=== PATIENT | female | born 1960 | race Caucasian/White ===

== ENCOUNTER 2016-10-25 16:43 | Emergency (ER) | payer BC ==
[~2016-10-25] VITALS: Ht 167.6 cm; Wt 61.4 kg
[2016-10-25 17:58] LABS: HEMATOCRIT 44.4 % (37.0-47.0); HEMOGLOBIN 14.8 g/dl (12.0-16.0); IMMATURE GRANULOCYTES 0.1 % (0.0-1.0); MEAN CELL VOLUME 91.9 fL CALC (80.0-100.0); MEAN CORPUSCULAR HGB 30.6 pG CALC (26.0-32.0); MEAN CORPUSCULAR HGB CONC 33.3 g/L CALC (32.0-36.0); NEUT# 3.45 thou/uL (2.00-7.15); RED BLOOD COUNT 4.83 mill/uL (4.20-5.60); RED CELL DISTRI WIDTH 13.2 % (11.5-15.5)
[2016-10-25 18:00] LABS: URINE BILIRUBIN - DIPSTICK NEGATIVE (NEGATIVE); URINE BLOOD DIPSTICK TRACE-INTACT (NEGATIVE); URINE CLARITY CLEAR; URINE COLOR YELLOW; URINE GLUCOSE - DIPSTICK NEGATIVE (NEGATIVE); URINE KETONE 15 mg/dL (NEGATIVE); URINE LEUK ESTERASE NEGATIVE (NEGATIVE); URINE NITRITE - DIPSTICK NEGATIVE (Negative); URINE PH 7.5 (4.5-8.0); URINE PROTEIN - DIPSTICK NEGATIVE (NEG-TRACE); URINE UROBILINOGEN - DIPSTICK 0.2 E.U./dL (0.2)
[2016-10-25 18:02] LABS: BARBITURATES NEGATIVE (NEGATIVE); COCAINE NEGATIVE (NEGATIVE); METHADONE NEGATIVE (NEGATIVE); OXCYCODONE NEGATIVE (NEGATIVE); TETRAHYDROCANNABIONOL NEGATIVE (NEGATIVE); TRICYLIC ANTIDEPRESSANTS NEGATIVE (NEGATIVE)
[2016-10-25 18:06] LABS: ALBUMIN 4.9 g/dL (3.2-5.0); ALKALINE PHOSPHATASE 88 u/l (38-126); ANION GAP 17 (6-22 (CALC)); BILIRUBIN, TOTAL 0.8 mg/dL (0.0-1.4); BUN 19 mg/dL (7-17); BUN/CREATININE RATIO 21 (12-20 (CALC)); CALCIUM 9.8 mg/dL (8.4-10.2); CARBON DIOXIDE 28 mmol/l (22-30); CHLORIDE 101 mmol/l (95-108); CREATININE 0.9 mg/dL (0.5-1.0); GFR > 60 ML/MIN (>=60 (CALC)); GFR FOR AFR.AMER. > 60 ML/MIN (>=60 (CALC)); GLUCOSE 112 mg/dL (65-105); POTASSIUM 3.3 mmol/l (3.5-5.1); SGOT/AST 28 u/l (14-36); SGPT/ALT 36 u/l (9-52); SODIUM 143 mmol/l (137-146); TOTAL PROTEIN 8.4 g/dL (6.3-8.2)
[2016-10-25 18:25] VITALS: BP 141/87
== END 2016-10-25 18:48 | disposition home or self-care (01) | DRG 103 ==
LOC: ED 16:43
PROVIDERS: Emergency Medicine
DX: R51 Headache (principal)

== ENCOUNTER 2016-10-29 15:15 | Emergency (ER) | payer BC ==
[~2016-10-29] VITALS: Ht 167.6 cm; Wt 55.0 kg
[2016-10-29] MEDS ORDERED: GARLIC PO (16:00)
[2016-10-29] MEDS ORDERED: VITAMIN D PO (16:01)
[2016-10-29] MEDS ORDERED: MOTRIN800 MG PO (16:03)
[2016-10-29] MEDS ORDERED: FLEXERIL PO (16:03)
[2016-10-29] MEDS ORDERED: TRAMADOL HYDROC50 MG PO (16:03)
[2016-10-29 16:30] VITALS: BP 119/75
== END 2016-10-29 16:35 | disposition home or self-care (01) | DRG 103 ==
LOC: ED 15:15
DX: G44.209 Tension-type headache, unspecified, not intractable (principal); M54.2 Cervicalgia